=== PATIENT | female | born 1955 | race African-American/Black ===

== ENCOUNTER → 2020-06-19 | Outpatient (CLI) | payer MEDICARE, MEDICAID | END | disposition home or self-care (01) | LOC: RAD 11:27 | PROVIDERS: ATTEND Internal Medicine Cardiovascular Disease | DX: I10 Essential (primary) hypertension (principal); R07.89 Other chest pain; R06.02 Shortness of breath | CPT/HCPCS: 78452; 93017; A9502; 93306 ==

== ENCOUNTER 2020-06-21 10:43 | Outpatient (CLI) | payer MEDICARE, MEDICAID | END 2020-06-21 23:59 | disposition home or self-care (01) | LOC: CFH 10:43 | PROVIDERS: ATTEND Internal Medicine Cardiovascular Disease | DX: Z02.9 Encounter for administrative examinations, unspecified (principal) ==

== ENCOUNTER 2020-09-16 12:28 | Emergency (ER) | payer MEDICARE, MEDICAID ==
[~2020-09-16] VITALS: Ht 167.6 cm; Wt 63.2 kg
--- NOTE | 2020-09-16 14:37 | NUR ---
PT AMBULATES WELL FROM LOBBY TO ROOM. AMBULATES DOWN ORTIZ TO BATHROOM FOR UA.
[2020-09-16] MEDS ORDERED: MECLIZINE CHEWABLE 25 MG TAB ONE (14:58)
[2020-09-16] MEDS ORDERED: MECLIZINE CHEWABLE 25 MG TAB PO ONE (15:00)
[2020-09-16 15:14] LABS: BASOPHILS % (AUTO) 1 % (0-1); EOSINOPHILS % (AUTO) 0 % (1-7); LYMPHOCYTES % (AUTO) 23 % (22-44); MEAN CORPUSCULAR HEMOGLOBIN 24.6 pg (27.0-34.8); MEAN CORPUSCULAR HGB CONC 32.2 g/dL (32.4-35.8); MONOCYTES % (AUTO) 7 % (2-9); NEUTROPHILS % (AUTO) 69 % (42-75); PLATELET COUNT 306 x10^3/uL (130-400); RED BLOOD COUNT 5.19 x10^6/uL (3.82-5.3)
[2020-09-16] MEDS ORDERED: SODIUM CHLORIDE 0.9% 1,000ML IVBOLUS ONE (15:30)
[2020-09-16] MEDS ORDERED: SODIUM CHLORIDE FLUSH 10ML SYR IVF ONE (15:30)
--- NOTE | 2020-09-16 15:30 | NUR ---
PT SITTING UP IN BED, NAD NOTED AT THIS TIME. USING CELL PHONE. SIDE RAILS UP, CALL LIGHT IN REACH. AWAITING LABS.
[2020-09-16 15:32] LABS: ALBUMIN 3.5 g/dL (3.4-5.0); ANION GAP 7 mmol/L (5-15); CALCIUM 8.8 mg/dL (8.5-10.1); CHLORIDE 101 mmol/L (98-107)
[2020-09-16 15:35] LABS: ALANINE AMINOTRANSFERASE 13 U/L (12-78); ALKALINE PHOSPHATASE 30 U/L (45-117); BILIRUBIN,TOTAL 0.6 mg/dL (0.2-1.0); CREATININE 0.85 mg/dL (0.55-1.02); TOTAL PROTEIN 7.9 g/dL (6.4-8.2)
[2020-09-16 15:44] LABS: MD NO
[2020-09-16 15:46] LABS: MICROSCOPIC INDICATED
[2020-09-16] MEDS ORDERED: CEFTRIAXONE PMX 1GM/50ML 50 ML ONE (16:39)
--- NOTE | 2020-09-16 16:50 | NUR ---
REPORT TO EVERTON ESTEVEZ.
[2020-09-16] MEDS ORDERED: CEFTRIAXONE PMX 1GM/50ML 50 ML IV ONE (17:00)
--- NOTE | 2020-09-16 17:36 | NUR ---
IVF COMPLETED INFUSING. PT CALLING FOR RIDE.
[2020-09-16 17:59] VITALS: BP 129/74
== END 2020-09-16 18:30 | disposition home or self-care (01) ==
LOC: ED 13:52
DX: U07.1 COVID-19 (principal); R06.02 Shortness of breath; R19.7 Diarrhea, unspecified; R63.0 Anorexia; R42 Dizziness and giddiness; R07.81 Pleurodynia; G43.909 Migraine, unspecified, not intractable, without status migrainosus
CPT/HCPCS: 36415; 71045; 80053; 81001; 83605; 84145; 85025; 87040; 87635; 93005; 96365; 99285; J0696; J7030